=== PATIENT | male | born 1975 | race Caucasian/White ===

== ENCOUNTER 2022-11-02 09:47 | Outpatient (CLI) | payer BC, SELFPAY | END 2022-11-02 09:48 | disposition home or self-care (01) | PROVIDERS: PCP Family Medicine; Visit Provider Nurse Practitioner Family | DX: R10.9 Unspecified abdominal pain (principal) | CPT/HCPCS: 80053; 83690 ==

== ENCOUNTER 2022-11-05 07:04 | Outpatient (CLI) | payer BC, SELFPAY ==
--- NOTE | 2022-11-05 07:15 | CRLHL7_ITS ---
For Patients: As a result of the Century Cures Act, medical imaging exams and procedure reports are released immediately into your electronic medical record. You may view this report before your referring provider. If you have questions, please contact your health care provider. INDICATION: RUQ PAIN COMPARISON: none TECHNIQUE: Real time christine scale imaging and color Doppler analysis was performed of the right upper quadrant. FINDINGS: The patient`s liver is of normal size and has diffusely coarsened and increased echogenicity. There is a normal appearance of the hepatic IVC and proximal abdominal aorta. There is no evidence of ascites. Echogenic stones are present within the gallbladder lumen resulting a somewhat wall echo shadow sign. The gallbladder wall measures 3 mm in thickness. The common bile duct is of normal size and measures 5 mm in diameter at the level of the melani hepatis. The pancreas appears normal. There is no evidence of a stone or hydronephrosis within the right kidney. The right kidney measures 13.4 cm in length. IMPRESSION: Calcified stones throughout the gallbladder compatible with cholelithiasis. Moderately severe hepatic steatosis. Dictated by Mike Ham MD @ 11/05/2022 10:07:03 AM (Electronically Signed)
== END 2022-11-05 07:05 | disposition home or self-care (01) ==
LOC: US 07:06
PROVIDERS: PCP Family Medicine; Visit Provider Nurse Practitioner Family
DX: R10.11 Right upper quadrant pain (principal); K80.20 Calculus of gallbladder without cholecystitis without obstruction; K76.0 Fatty (change of) liver, not elsewhere classified
CPT/HCPCS: 76705

== ENCOUNTER 2022-11-23 06:08 | Day surgery (SDC) | payer BC, SELFPAY ==
[2022-11-23] VITALS (15 sets, daily range): BP systolic 131–147; BP diastolic 77–98; PULSE 60–72; RESP 15–20; TEMP 36.2–36.7; O2SAT 93–98; BMI 33.7
[2022-11-23] MEDS: LACTATED RINGERS 1000 ML 1,000 ML 100 ML IV ×2 (06:48→08:33)
[2022-11-23] MEDS: SODIUM CHLORIDE 0.9 % (FLUSH) 10 ML SYRINGE IVF (06:48)
--- NOTE | 2022-11-23 07:08 | W.ANESCHARGE ---
Anesthesia Charges Start Date/Time Anesthesia Start Date: 11/23/22 Anesthesia Start Time: 07:28 Stop Date/Time Anesthesia Stop Date: 11/23/22 Anesthesia Stop Time: 09:25
[2022-11-23] MEDS: CEFAZOLIN 2 GM INJ IVP (07:39)
[2022-11-23] MEDS: BUPIVACAINE 0.5% 30 ML INJECTION (08:45)
--- NOTE | 2022-11-23 09:12 | PM.GSPRC ---
Operative Note Date of procedure: 11/23/22 Pre-op diagnosis: Biliary colic Post-op diagnosis: Same Type of Procedure: Laparoscopic cholecystectomy Indications: Patient is a 47-year-old male who presented to clinic with clinical history and workup consistent with biliary colic. Risks and benefits of operative intervention were discussed at length with the patient. Risks included but was not limited to: Bleeding, infection, risk of damage to surrounding structures, possible need for additional procedures, possible need to convert to an open operation and postoperative complications such as pneumonia, pulmonary emboli or ME. All questions and concerns were addressed with the patient agreeing to proceed. Procedure Description: After discussing the risks and benefits of the procedure, the patient signed informed consent.? The operative site was marked and the patient was brought to the operating room and placed on the operating table in supine position.? Care was taken to pad the patient's pressure points.?? The patient was then intubated by anesthesia.?? The operative site was then prepped and draped in the usual sterile fashion.? A time-out was then performed. Entrance to the abdomen was gained via a 5 mm Visiport in the left upper quadrant. The abdomen was insufflated and briefly surveyed for signs of injury. There was none. 11 mm umbilical port was placed as well as 2 working ports along the right costal margin. Patient was then placed in reverse Trendelenburg position with the right side up. The gallbladder fundus was grasped and retracted cephalad. A small amount of dissection was needed to free omental adhesions from the gallbladder. The infundibulum was grasped. A combination of hook cautery and blunt dissection was used to carefully dissect out the cystic duct and artery until they could clearly be seen entering the gallbladder without any intervening structures. This portion of the dissection was made difficult secondary to a copious amount of fat surrounding the structures and within the hepatic hilum. The gallbladder was dissected off the cystic plate to achieve the critical view. A prominent vein was visualized on the anterior aspect of the cystic duct. This was dissected out and 2 clips applied. During further dissection these clips fell into the gallbladder fossa. Bleeding was controlled with an additional clip. Once the critical view was achieved and there was adequate hemostasis the cystic duct and artery were each clipped with 2 clips proximally and 1 clip distally and transected with the scissors. The gallbladder was then taken off of the liver bed and removed from the abdomen using an Endo-Catch bag. The gallbladder bed was surveyed for hemostasis. A small amount of bile which had spilled was suctioned from the abdomen the ports were then removed under direct vision. The umbilical port fascia was closed with 0 Vicryl. All other ports removed under direct visualization. The skin was closed with absorbable subcuticular suture. Instrument sponge and needle counts were correct at the end of the case. The patient was then woken and transferred to the PACU in stable condition. ? Findings: Cholelithiasis. Anesthesia: GETA Surgeon: Michaela Carlisle MD Estimated blood loss (mL): 10 Specimen: Gallbladder Condition: stable Disposition: same day
--- NOTE | 2022-11-23 09:31 | W.ANESCHARGE ---
Anesthesia Charges Start Date/Time Anesthesia Start Date: 11/23/22 Anesthesia Start Time: 07:28 Stop Date/Time Anesthesia Stop Date: 11/23/22 Anesthesia Stop Time: 09:25
[2022-11-23] MEDS: fentaNYL 100 MCG/2 ML inj 50 MCG IVP (09:43)
--- NOTE | 2022-11-23 10:01 | SUR.PHASEI ---
patient met discharge criteria per anesthesia
[2022-11-23] MEDS: OXYCODONE 5 MG TABLET PO (10:40)
[2022-11-23] MEDS: ONDANSETRON 2 MG/ML inj 4 MG IVP (11:00)
--- NOTE | 2022-11-23 12:34 | SUR.OPER ---
MAR Record for 11/23/2022 @ 0845: 20CC 0.5% Marcaine into OP SITES administered by Dr. Hetal Bates
== END 2022-11-23 11:40 | disposition home or self-care (01) ==
PROVIDERS: PCP Family Medicine; Visit Provider Surgery
PROC: 0FT44ZZ Resection of Gallbladder, Percutaneous Endoscopic Approach (ICD-10-PCS; CPT 47562; principal; 2022-11-23 07:30)
DX: K80.10 Calculus of gallbladder with chronic cholecystitis without obstruction (principal)
CPT/HCPCS: 47562; 00790; 88304; A9270; J0330; J0690; J1100; J2250; J2405; J2704; J2710; J3010; J3490; J7120

== ENCOUNTER 2023-08-17 09:38 | Outpatient (CLI) | payer BC, SELFPAY | END 2023-08-17 09:39 | disposition home or self-care (01) | LOC: LKVREF 09:40 | PROVIDERS: PCP Family Medicine; Visit Provider Family Medicine | DX: R74.8 Abnormal levels of other serum enzymes (principal) | CPT/HCPCS: 80053 ==

== ENCOUNTER 2023-09-05 06:02 | Day surgery (SDC) | payer BC, SELFPAY ==
[2023-09-05] VITALS (12 sets, daily range): BP systolic 105–158; BP diastolic 61–101; PULSE 70–80; RESP 12–18; TEMP 36.6–36.8; O2SAT 91–96; BMI 35.2
[2023-09-05] MEDS: LACTATED RINGERS 1000 ML 1,000 ML 100 ML IV (06:15)
[2023-09-05] MEDS: SODIUM CHLORIDE 0.9 % (FLUSH) 10 ML SYRINGE IVF (06:15)
--- NOTE | 2023-09-05 07:07 | W.PM.H&PU ---
History & Physical Update History & Physical Update H&P Reviewed and patient assessed: No changes noted
--- NOTE | 2023-09-05 07:11 | PM.GSPRC ---
Operative Note Date of procedure: 09/05/23 Pre-op diagnosis: 1. Supraumbilical incisional hernia. 2. s/p laparoscopic cholecystectomy. Post-op diagnosis: Same Type of Procedure: 1. Supraumbilical incisional hernia repair with mesh. Indications: 48-year-old male was seen in clinic for evaluation of supraumbilical bulge. Patient underwent a laparoscopic cholecystectomy in November of 2022. Last fall patient noticed a prominent bulge just above his supraumbilical incision. Patient was not compliant with lifting restrictions after his laparoscopic cholecystectomy. He denied pain at the bulge. On clinical exam just superior to the well-healed surgical scar there is a golf ball-sized bulge that is palpable. This is mostly prominent when the patient is standing up. This is not tender to palpation. Given patient's clinical history and his physical exam, conservative treatment versus open supraumbilical hernia repair with mesh was discussed. Patient elected to proceed with surgical repair. The procedure was discussed in detail. The risks associated procedure including infection, bleeding, injury to intra-abdominal organs, and hernia recurrence were all discussed with the patient, and he agreed to proceed. Procedure Description: After discussing the risks and benefits of the procedure, the patient signed informed consent.? The operative site was marked and the patient was brought to the operating room and placed on the operating table in supine position.? Care was taken to pad the patient's pressure points.?? The patient was then intubated by anesthesia.?? The operative site was then prepped and draped in the usual sterile fashion.? A time-out was then performed. A vertical elliptical supraumbilical skin incision was made excising the stretched out well-healed surgical scar. This ellipse of skin was excised and not sent to pathology. Subcutaneous fat and scar tissue was divided with cautery. A hernia sac was identified superior to the umbilicus. Moderate amount of scar tissue was noted and at first it was difficult to define the fascial edges and mobilize those of peritoneum. The abdomen was entered and fatty adhesions were palpated in the abdomen. I then developed preperitoneal space for mesh placement. This was done circumferentially with cautery and bluntly. The hernia sac was excised and not sent to pathology. Peritoneum was then closed with a running 3-0 Vicryl stitch. The fascial defect was approximately 3 x 1.5 cm. Hemostasis was achieved with cautery. Ventralex ST medium-sized mesh was then placed into this preperitoneal space and secured to the fascia with interrupted 0-0 Nurolon sutures circumferentially. The anterior fascia was then closed over the mesh with a running 0-0 Vicryl suture. Additional local anesthetic was injected at the surgical site. Subcutaneous fat was reapproximated over the fascia with interrupted Vicryl sutures. The dermis was then reapproximated with interrupted 3-0 Vicryl sutures. The skin was closed with a running 4-0 Monocryl stitch. Steri-Strips and sterile dressing were placed over the incision. All counts were correct at the end of the case. ? The patient was then woken and transported to the recovery area in stable condition. ? The patient tolerated the procedure well. Findings: 3 x 1.5 cm fascial defect. Repaired with medium-sized mesh in preperitoneal space. Anesthesia: GETA Surgeon: Rikki Bates MD Estimated blood loss (mL): 5 Condition: stable Disposition: PACU
[2023-09-05] MEDS: CEFAZOLIN 2 GM INJ IVP (07:30)
--- NOTE | 2023-09-05 07:49 | W.ANESCHARGE ---
Anesthesia Charges Start Date/Time Anesthesia Start Date: 09/05/23 Anesthesia Start Time: 07:25 Stop Date/Time Anesthesia Stop Date: 09/05/23 Anesthesia Stop Time: 09:07
[2023-09-05] MEDS: BUPIVACAINE 0.25% 30 ML INJECTION (08:40)
== END 2023-09-05 10:38 | disposition home or self-care (01) ==
PROVIDERS: PCP Family Medicine; Visit Provider Surgery
PROC: (CPT 49593; principal; 2023-09-05 07:30)
DX: K43.2 Incisional hernia without obstruction or gangrene (principal)
CPT/HCPCS: 49593; 00832; C1781; J0330; J0665; J0690; J1100; J1170; J2250; J2405; J2704; J3010; J3490; J7120